=== PATIENT | male | born 1970 | race Caucasian/White ===

== ENCOUNTER 2021-05-14 01:27 | Emergency (ER) | payer SELFPAY ==
[~2021-05-14] VITALS: Ht 160 cm; Wt 95.3 kg
[2021-05-14 01:32] VITALS: BP 109/61
--- NOTE | 2021-05-14 01:32 | NUR ---
TO BED AMBULATORY
--- NOTE | 2021-05-14 01:40 | NUR ---
PATIENT AMBULATED TO BED 11 WITH STEADY GAIT.
--- NOTE | 2021-05-14 01:45 | NUR ---
PATIENT 50 Y/O MALE BIB SELF FOR C/O EPIGASTRIC PAIN RADIATING TO RUQ AND RLQ X 4 DAYS. PER PATIENT STATES HAS HAD EPISODES OF N/V , LAST EPISODE X 1 HOUR AGO. PER PATIENT EMISIS WAS CLEAR IN COLOR. PATIENT'S LAST BM WAS TODAY AND DARK BROWN. PER PATIENT TOOK TYLENOL FOR PAIN AT HOME WITH INEFFECTIVE RESULTS. BS PRESENT X 4. PATIENT AT BEDSIDE. VSS. MEDHX: DENIES ALLERGIES: NKA
--- NOTE | 2021-05-14 01:54 | NUR ---
ERMD AT BEDSIDE FOR MEDICAL EVALUATION.
[2021-05-14] MEDS ORDERED: NACL 0.9% 1,000 ML IV ONE (02:00)
[2021-05-14] MEDS ORDERED: ONDANSETRON 4 MG/2 ML VIAL IVP ONE (02:00)
[2021-05-14] MEDS ORDERED: KETOROLAC 30 MG/ML VIAL IVP ONE (02:00)
[2021-05-14] MEDS ORDERED: DICYCLOMINE HCL LIQUID 20 MG, ALUMINUM HYD/MAG/SIMETHICONE 30 ML, LIDOCAINE VISCOUS 2% ... PO ONE ×3 (02:00)
[2021-05-14] MEDS ORDERED: LIDOCAINE VISCOUS 2% 20 ML UDC ONE (02:04)
[2021-05-14] MEDS ORDERED: ALUMINUM HYD/MAG/SIMETHICONE 30 ML UDC ONE (02:04)
[2021-05-14] MEDS ORDERED: DICYCLOMINE HCL LIQUID 10 MG/5 ML UDC ONE (02:04)
[2021-05-14] MEDS ORDERED: ONDA8TAB87 PO (02:11)
[2021-05-14] MEDS ORDERED: IBUP-2213 PO (02:11)
[2021-05-14] MEDS ORDERED: OMEP40EC24 PO (02:11)
--- NOTE | 2021-05-14 02:20 | NUR ---
PT. LAYING COMFORTABLY IN SUPINE POSITION ON BED, AWAITING FOR DISPOSITON.
[2021-05-14] MEDS ORDERED: MORPHINE SULFATE 4 MG/ML SYR IVP ONE (03:15)
[2021-05-14 03:44] VITALS: BP 109/61
--- NOTE | 2021-05-14 03:44 | NUR ---
Patient discharged with v/s stable. Written and verbal after care instructions given and explained. Patient alert, oriented and verbalized understanding of instructions. Ambulatory with steady gait. All questions addressed prior to discharge. ID band removed. Patient advised to follow up with PMD. Rx of IBUPROFEN, OMEPRAZOLE, AND ZOFRAN given. Patient educated on indication of medication including possible reaction and side effects. Opportunity to ask questions provided and answered.
== END 2021-05-14 03:44 | disposition home or self-care (01) ==
LOC: MED 01:27
DX: R10.13 Epigastric pain (principal); R11.2 Nausea with vomiting, unspecified
CPT/HCPCS: 96361; 96374; 96375; 99284; J1885; J2270; J2405; J7030

== ENCOUNTER 2021-05-17 10:35 | Emergency (ER) | payer SELFPAY ==
[~2021-05-17] VITALS: Ht 157.5 cm; Wt 99.8 kg
[~2021-05-17 10:35] MED LIST: IBUP-2213 PO; OMEP40EC24 PO; ONDA8TAB87 PO
[2021-05-17 10:42] VITALS: BP 117/75
[2021-05-17] MEDS ORDERED: NACL 0.9% 1,000 ML IV SCH (11:55)
[2021-05-17] MEDS ORDERED: FAMOTIDINE 20 MG/2 ML VIAL IVP ONE (11:55)
[2021-05-17] MEDS ORDERED: KETOROLAC 30 MG/ML VIAL IVP ONE (11:55)
[2021-05-17 13:11] LABS: BASOPHILS % (AUTO) 0.5 % (0.0-2.0); HEMATOCRIT 47.1 % (36-52); HEMOGLOBIN 15.8 g/dL (12.0-18.0); LYMPHOCYTES # (AUTO) 1.4 K/uL (2.0-11.5); LYMPHOCYTES % (AUTO) 25.1 % (20.5-51.1); MEAN CORPUSCULAR HEMOGLOBIN 30 pg (27-31); MEAN CORPUSCULAR HGB CONC 34 g/dL (33-37); MEAN CORPUSCULAR VOLUME 87.9 fL (80-94); MONOCYTES # (AUTO) 0.5 K/uL (0.8-1.0); MONOCYTES % (AUTO) 8.4 % (1.7-9.3); NEUTROPHILS # (AUTO) 3.6 K/uL (1.8-7.7); PLATELET COUNT (AUTO) 166 K/uL (140-450); RED BLOOD CELL COUNT(AUTO) 5.36 MIL/uL (4.20-6.10); RED CELL DISTRIBUTION WIDTH 13.7 % (11.6-13.7); WHITE BLOOD COUNT (AUTO) 5.4 K/uL (4.8-10.8)
[2021-05-17 13:19] LABS: APPEARANCE,URINE CLEAR (CLEAR); BILIRUBIN,URINE NEGATIVE (NEGATIVE); BLOOD, URINE TRACE-I (NEGATIVE); COLOR,URINE YELLOW (YELLOW); LEUKOCYTE ESTERASE ,URINE NEGATIVE (NEGATIVE); NITRITE, URINE NEGATIVE (NEGATIVE); UGLUCOSE NEGATIVE (NEGATIVE)
[2021-05-17 13:37] LABS: ALBUMIN 3.6 g/dL (3.4-5.0); ANION GAP 12.2 (8-16); CARBON DIOXIDE 28.8 mmol/L (21-32); CREATININE 0.9 mg/dL (0.6-1.3); TOTAL BILIRUBIN 0.5 mg/dL (0.0-1.0)
[2021-05-17 13:53] LABS: RBC,URINE 0-5 /HPF (0-5); WBC,URINE 0 /HPF (0-5)
[2021-05-17] MEDS ORDERED: ACET-8386 PO (14:05)
[2021-05-17 14:25] VITALS: BP 117/75
[2021-05-18] MEDS ORDERED: ALBU0.0912 IH (13:24)
[2021-05-18] MEDS ORDERED: ACET-8386 PO (13:24)
[2021-05-18] MEDS ORDERED: AZIT250T4 PO (13:24)
== END 2021-05-17 14:24 | disposition home or self-care (01) ==
LOC: MED 10:35
DX: K29.70 Gastritis, unspecified, without bleeding (principal); K76.0 Fatty (change of) liver, not elsewhere classified; R74.01 Elevation of levels of liver transaminase levels
CPT/HCPCS: 36415; 76705; 80053; 81001; 83690; 85025; 96361; 96374; 96375; 99284; J1885; J3490; J7030

== ENCOUNTER 2021-05-18 10:13 | Emergency (ER) | payer SELFPAY ==
[~2021-05-18] VITALS: Ht 160 cm; Wt 99.8 kg
[~2021-05-18 10:13] MED LIST changes: +ACET-8386 PO
[2021-05-18 10:33] VITALS: BP 119/87
--- NOTE | 2021-05-18 10:55 | NUR ---
50 Y/O MALE C/O EPIGASTRIC PAIN, N/V X 1 WEEK AND C/O FEVER,COUGH, SORE THROAT X YESTERDAY. PT WAS SEEN HERE YESTERDAY FOR GASTRITIS AND STATES THAT IT IS WORSE. PT RATES PAIN 10/10 AND DESCRIBES IT THROBBING AND NONRADIATING. PT GIVEN EMESIS BAG. PT IN GOWN. PT A/O X4 WITH EVEN AND UNLABORED RESPIRATIONS. PMH:DENIES NKDA
--- NOTE | 2021-05-18 10:58 | NUR ---
Dr. Morelos is evaluating the patient at bedside.
[2021-05-18] MEDS ORDERED: MORPHINE SULFATE 4 MG/ML SYR IVP ONE (11:05)
[2021-05-18] MEDS ORDERED: ONDANSETRON 4 MG/2 ML VIAL IVP ONE (11:05)
[2021-05-18] MEDS ORDERED: NACL 0.9% 1,000 ML IV ONE (11:05)
--- NOTE | 2021-05-18 11:24 | NUR ---
20 G IV ESTABLISHED TO L AC. BLOOD DRAW COLLECTED VIA IV. BLOOD SAMPLE, URINE SAMPLE, AND COVID JOSÉ LUIS/NOVEL SAMPLES COLLECTED AND WALKED TO LAB.
--- NOTE | 2021-05-18 11:28 | NUR ---
Patient taken to CT scan via wheelchair by tech.
--- NOTE | 2021-05-18 11:39 | NUR ---
PT BACK FROM CT AND CONNECTED TO FLUIDS
[2021-05-18 11:52] LABS: BASOPHILS % (AUTO) 0.5 % (0.0-2.0); HEMATOCRIT 46.2 % (36-52); HEMOGLOBIN 15.5 g/dL (12.0-18.0); LYMPHOCYTES # (AUTO) 1.1 K/uL (2.0-11.5); LYMPHOCYTES % (AUTO) 19.7 % (20.5-51.1); MEAN CORPUSCULAR HEMOGLOBIN 29 pg (27-31); MEAN CORPUSCULAR HGB CONC 34 g/dL (33-37); MEAN CORPUSCULAR VOLUME 86.8 fL (80-94); MONOCYTES # (AUTO) 0.4 K/uL (0.8-1.0); MONOCYTES % (AUTO) 7.3 % (1.7-9.3); NEUTROPHILS # (AUTO) 4.2 K/uL (1.8-7.7); NEUTROPHILS % (AUTO) 72.5 % (42.2-75.2); PLATELET COUNT (AUTO) 171 K/uL (140-450); RED BLOOD CELL COUNT(AUTO) 5.32 MIL/uL (4.20-6.10); RED CELL DISTRIBUTION WIDTH 13.7 % (11.6-13.7); WHITE BLOOD COUNT (AUTO) 5.8 K/uL (4.8-10.8)
[2021-05-18 12:02] LABS: APPEARANCE,URINE CLEAR (CLEAR); BILIRUBIN,URINE NEGATIVE (NEGATIVE); BLOOD, URINE NEGATIVE (NEGATIVE); COLOR,URINE YELLOW (YELLOW); LEUKOCYTE ESTERASE ,URINE NEGATIVE (NEGATIVE); NITRITE, URINE NEGATIVE (NEGATIVE); UGLUCOSE NEGATIVE (NEGATIVE)
[2021-05-18 12:09] LABS: ALBUMIN 3.4 g/dL (3.4-5.0); ANION GAP 13.9 (8-16); CARBON DIOXIDE 25.1 mmol/L (21-32); CREATININE 0.9 mg/dL (0.6-1.3); TOTAL BILIRUBIN 0.6 mg/dL (0.0-1.0)
[2021-05-18 12:27] LABS: RBC,URINE 0-5 /HPF (0-5); WBC,URINE 0-5 /HPF (0-5)
--- NOTE | 2021-05-18 12:38 | NUR ---
RAD AT BEDSIDE
[2021-05-18 13:00] LABS: BARBITURATE, URINE NEGATIVE ng/ml (NEG <=200); BENZODIAZEPINE, URINE NEGATIVE ng/mL (NEG <=200); CANNABINOID, URINE NEGATIVE ng/mL (NEG <=50); COCAINE, URINE NEGATIVE ng/mL (NEG <=300); OPIATE, URINE NEGATIVE ng/mL (NEG <=2000); PHENCYCLIDINE SCREEN,URINE NEGATIVE ng/mL (NEG <=25)
[2021-05-18] MEDS ORDERED: AZIT250T4 PO (13:24)
[2021-05-18] MEDS ORDERED: ALBU0.0912 IH (13:24)
[2021-05-18] MEDS ORDERED: ACET-8386 PO (13:24)
--- NOTE | 2021-05-18 13:35 | NUR ---
PT LAYING IN BED WITH EVEN AND UNLABORED RESPIRATIONS. PT DENIES PAIN AT THIS TIME. WILL CONTINUE TO MONITOR
[2021-05-18] MEDS ORDERED: cefTRIAXone 1,000 MG VIAL ONE (13:54)
[2021-05-18 14:35] VITALS: BP 119/87
--- NOTE | 2021-05-18 14:35 | NUR ---
Patient discharged with v/s stable. Written and verbal after care instructions ABOUT MEDICATIONS, COVID 19, COMMUNITY-ACQUIRED PNEUMONIA given and explained. Patient alert, oriented and verbalized understanding of instructions. Ambulatory with steady gait. All questions addressed prior to discharge. ID band removed. Patient advised to follow up with PMD. Rx of HYDROCODONE/ACETAMINOPHEN 5-325, ALBUTEROL SULFATE, AZITHROMYCIN given. Patient educated on indication of medication including possible reaction and side effects. Opportunity to ask questions provided and answered.
== END 2021-05-18 14:30 | disposition home or self-care (01) ==
LOC: MED 10:13
DX: U07.1 COVID-19 (principal); J12.82 Pneumonia due to coronavirus disease 2019
CPT/HCPCS: 71045; 74176; 80053; 80305; 81001; 83690; 85025; 87426; 96361; 96365; 96375; 99285; J0696; J2270; J2405; J7030; U0003